=== PATIENT | female | born 1975 | race Caucasian/White ===

== ENCOUNTER → 2018-07-15 11:25 | Outpatient (CLI) | payer MEDICAID, SELFPAY ==
[2018-07-15 13:10] LABS: Free T3 2.7 pg/mL (2.18-3.98); T4 Free Direct 0.96 ng/dL (0.76-1.46); Vitamin B12 383 pg/mL (211-911); Vitamin D,25 Hydroxy 26.5 ng/mL (29.95-100.01)
[2018-07-22 14:38] LABS: HPV APTIMA, High Risk Positive (Negative)
== END ==
PROVIDERS: Referring Provider Obstetrics & Gynecology; Visit Provider Obstetrics & Gynecology
DX: N92.0 Excessive and frequent menstruation with regular cycle (principal); R53.83 Other fatigue; R53.81 Other malaise; Z12.4 Encounter for screening for malignant neoplasm of cervix
CPT/HCPCS: 36415; 82306; 82607; 83090; 83921; 84439; 84443; 84481; 87624; 88175; G0145

== ENCOUNTER → 2018-08-06 16:35 | Outpatient (CLI) | payer MEDICAID, SELFPAY ==
--- NOTE | 2018-08-06 | IMM_PTH ---
PATIENT: JE BALL LOC: [facility] U#:[id number] AGE/SX: 50/F ROOM: RE08/06/[address]: Dr. Kelli Vallejo MD : 1975 BED: DIS: SPEC #: [id number] RECD: 08/10/18 13:52 STATUS: AMARI SERVANDO #: [id number] CHATO: 08/06/18 00:[address]: Kelli Yates DEPT: IMMUNOHISTOCHEMISTRY RECD BY: Sarah Cardozo Tissues: A - Uterine cervix, NOS B - Uterine cervix, NOS Procedures: p16 (initial) KI-67 (add) PHYSICIAN & [place] [id number] SPECIMEN INFORMATION: Tissue Source: A - Cervix, 6 o'clock, biopsy, B - Cervix, 10 o'clock, biopsy Clinical Info: ASCUS, positive HPV Specimen Number: [id number] A & B CPT code: 86756 x2, 82332 x2 METHODOLOGY: Deparaffinized sections of prefer/formalin-fixed tissue or PAP/DQ stained slides are incubated with monoclonal/polyclonal antibodies/oligonucleotide probes. Localization is made via biotin free immunoperoxidase method. Appropriate controls are performed and reacted as expected. Results on target cell population are indicated in the following table: RESULTS: ANTIBODY / CLONE RESULT Block A P16 (E6H4) negative Ki-67 (30-9) negative Block B P16 (E6H4) positive, rare cells, patchy staining Ki-67 (30-9) positive, low These tests were developed and their performance characteristics determined by [facility]. They may not have been cleared or approved by the U.S. Food and Drug Administration. The FDA has determined that such clearance or approval is not necessary. INTERPRETATION: A. Cervix, 6 o'clock, biopsy: Negative for dysplasia. B. Cervix, 10 o'clock, biopsy: Focal changes consistent with HPV cytopathic effects. SJ:mauricio 08/12/18
--- NOTE | 2018-08-06 15:30 | CER_PTH ---
PATIENT: JE BALL LOC: [facility] #:[id number] AGE/SX: 50/F ROOM: RE08/06/[address]: Dr. Kelli Vallejo MD : 1975 BED: DIS: SPEC #: [id number] RECD: 08/09/18 08:59 STATUS: AMARI SERVANDO #: [id number] CHATO: 08/06/18 15:[address]: Kelli Yates DEPT: SURGICAL PATHOLOGY RECD BY: Christiano Blake Tissues: A - Uterine cervix, NOS B - Uterine cervix, NOS C - Endocervical D - POLYP Procedures: Surgery Specimen Level IV HEADER OPERATION: Colposcopy PRE-OP DIAGNOSIS: ASCUS, positive HPV, LMP 07/15/18, pap 07/15/18 TISSUE SUBMITTED: A - Cervical biopsy 6 o'clock, B - Cervical biopsy 10 o'clock, C - ECC, D - Polyp MICROSCOPIC DIAGNOSIS A. Cervix, 6 o'clock, biopsy: A minute fragment of squamous epithelium, desquamated benign endocervical epithelial cells and mucous, negative for dysplasia. See comment. B. Cervix, 10 o'clock, biopsy: Focal changes consistent with HPV cytopathic effects. Chronic inflammation. See comment. C. ECC: Fragments of benign endocervical epithelium, negative for dysplasia. D. Polyp: Fragments of inflamed ecto- and endocervical polyp and mucoid tissue. SJ:mauricio 08/12/18 COMMENT A & B. Immunohistochemistry ([id number]) for surrogate HPV marker (p16) supports the above diagnosis. Please make reference to previous specimen ([id number]) cervix, 10 o'clock, biopsy with diagnosis of fragment of squamous mucosa with mild dysplasia with HPV changes and cervix, 4 o'clock, biopsy with diagnosis of fragments of squamous mucosa with changes consistent with HPV cytopathic effects. Case has been reviewed in consultation with Dr. Echeverria who concurs with the above diagnosis. IDC:AM MICROSCOPIC DESCRIPTION Slides are reviewed. GROSS DESCRIPTION A - Received in fixative is one container labeled with the patient's name and designated cervical biopsy 6?o'clock. The specimen consists of one minute fragment of martin soft tissue submitted entirely for cell block preparation. B - Received in fixative is one container labeled with the patient's name and designated cervical biopsy 10?o'clock. The specimen consists of one irregular fragment of light martin soft tissue that measures 0.3 x 0.2 x 0.1 cm. The specimen is totally submitted in one cassette. C - Received in fixative is one container labeled with the patient's name and designated ECC. The specimen consists of a few fragments of hemorrhagic soft tissue submitted for cell block preparation. D - Received in fixative is one container labeled with the patient's name and designated polyp. The specimen consists of multiple fragments of hemorrhagic mucoid tissue that in aggregate measure 2 x 2 x 0.2 cm. The specimen is totally submitted in one cassette. / SJ:rg 08/09/18 TC: 5 CPT: 80264 x4
== END ==
PROVIDERS: Referring Provider Obstetrics & Gynecology; Visit Provider Obstetrics & Gynecology
DX: N93.0 Postcoital and contact bleeding (principal); R87.610 Atypical squamous cells of undetermined significance on cytologic smear of cervix (ASC-US)
CPT/HCPCS: 88305; 88341; 88342

== ENCOUNTER → 2019-08-02 14:05 | Outpatient (CLI) | payer MEDICAID, SELFPAY ==
[2019-08-09 09:58] LABS: HPV APTIMA, High Risk Positive (Negative)
== END ==
PROVIDERS: Visit Provider Obstetrics & Gynecology
DX: N76.0 Acute vaginitis (principal); Z12.4 Encounter for screening for malignant neoplasm of cervix
CPT/HCPCS: 87624; 88175; G0145

== ENCOUNTER → 2019-09-08 | Outpatient (CLI) | payer MEDICAID, SELFPAY ==
--- NOTE | 2019-09-08 | IMM_PTH ---
PATIENT: JE BALL LOC: [facility] U#:[id number] AGE/SX: 44/F ROOM: RE09/08/[address]: Dr. Kelli Vallejo MD : 1975 BED: DIS: 09/08/2019 SPEC #: [id number] RECD: 09/12/19 12:54 STATUS: AMARI SERVANDO #: [id number] CHATO: 09/08/19 00:[address]: Kelli Yates DEPT: IMMUNOHISTOCHEMISTRY RECD BY: Sarah Cardozo Tissues: A - Uterine cervix, NOS B - Endocervical Procedures: p16 (initial) KI-67 (add) PHYSICIAN & [place] [id number] SPECIMEN INFORMATION: Tissue Source: A - Cervix at 7 o'clock, B - [facility] Clinical Info: [facility] Specimen Number: [id number] A & B CPT code: 62873 x2, 90871 x2 METHODOLOGY: Deparaffinized sections of prefer/formalin-fixed tissue or PAP/DQ stained slides are incubated with monoclonal/polyclonal antibodies/oligonucleotide probes. Localization is made via biotin free immunoperoxidase method. Appropriate controls are performed and reacted as expected. Results on target cell population are indicated in the following table: RESULTS: ANTIBODY / CLONE RESULT Block A P16 (E6H4) negative Ki-67 (30-9) negative Block B P16 (E6H4) negative Ki-67 (30-9) negative These tests were developed and their performance characteristics determined by [facility]. They may not have been cleared or approved by the U.S. Food and Drug Administration. The FDA has determined that such clearance or approval is not necessary. The above immunohistochemical/dualISH markers are ordered and reviewed by the Pathologist. INTERPRETATION: A. Cervix at 7 o'clock, biopsy: No evidence of dysplasia. B. Endocervix, curettage: No evidence of dysplasia. AM:mauricio 09/13/19
--- NOTE | 2019-09-08 10:45 | CER_PTH ---
PATIENT: JE BALL LOC: [facility] U#:[id number] AGE/SX: 44/F ROOM: RE09/08/[address]: Dr. Kelli Vallejo MD : 1975 BED: DIS: 09/08/2019 SPEC #: [id number] RECD: 09/08/19 14:30 STATUS: AMARI AL #: [id number] CHATO: 09/08/19 10:[address]: Kelli Yates DEPT: SURGICAL PATHOLOGY RECD BY: Paul Quinn Tissues: A - Uterine cervix, NOS B - Uterine cervix, NOS Procedures: Surgery Specimen Level IV HEADER OPERATION: Colposcopy PRE-OP DIAGNOSIS: LMP 08/20/19, LGSIL TISSUE SUBMITTED: A - Cervical at 7 o'clock, B - ECC MICROSCOPIC DIAGNOSIS A. Cervix, biopsy: No evidence of dysplasia. Chronic inflammation. See comment. B. Endocervix, curettings: Strips of benign superficial endocervix. Rare detached squamous epithelial cells. See comment. AM:mauricio 09/12/19 COMMENT A & B. Results from immunohistochemistry ([id number]) for surrogate HPV marker (p16) will be reported separately. MICROSCOPIC DESCRIPTION Slides are reviewed. GROSS DESCRIPTION A - Received in fixative is one container labeled with the patient's name and designated cervical. The specimen consists of multiple irregular fragments of light martin soft tissue that in aggregate measure 0.6 x 0.5 x 0.1 cm. The specimen is totally submitted in one cassette. B - Received in fixative is one container labeled with the patient's name and designated ECC. The specimen consists of multiple minute fragments of martin tissue that in aggregate measure 1 x 1 x <0.1 cm. The specimen is totally submitted in one cassette. / AM:mauricio 09/09/19 TC:4 CPT: 87909 x2
== END | disposition home or self-care (01) ==
LOC: LABSPEC 14:09
PROVIDERS: Visit Provider Obstetrics & Gynecology
DX: R87.612 Low grade squamous intraepithelial lesion on cytologic smear of cervix (LGSIL) (principal)
CPT/HCPCS: 88305; 88341; 88342

== ENCOUNTER → 2021-01-17 12:03 | Outpatient (CLI) | payer MEDICAID, SELFPAY ==
[2021-01-17 13:28] LABS: Hematocrit 44.8 % (37-47); Hemoglobin 14.1 g/dL (12.0-15.0); Mean Corp Hgb Conc 31.5 g/dL (32-36); Mean Corpuscular Hgb 28.5 pg (27.0-32.0); Mean Corpuscular Volume 90.7 fL (81-99); Mean Platelet Vol. 12.3 fl (6.2-12.0); Platelet Count 199 K/mm3 (150-450); RBC Distribution Width CV 13.2 % (11.6-14.6); RBC Distribution Width SD 44.1 fl (35.1-43.9); Red Blood Count 4.94 M/mm3 (4.2-5.4); White Blood Count 6.5 K/mm3 (4.4-11.0)
[2021-01-17 13:37] LABS: Ferritin 11 ng/mL (8-252); Iron 165 ug/dL (50-170); Iron Binding Capacity,Total 377 ug/dL (250-450); PERCENT IRON SATURATION 43.8 % (15.0-55.0)
[2021-01-23 13:42] LABS: HPV APTIMA, High Risk Positive (Negative)
== END ==
PROVIDERS: Visit Provider Obstetrics & Gynecology
DX: N92.1 Excessive and frequent menstruation with irregular cycle (principal); Z12.4 Encounter for screening for malignant neoplasm of cervix
CPT/HCPCS: 36415; 82728; 83540; 83550; 85027; 87624; 88175; G0145

== ENCOUNTER → 2021-01-31 | Outpatient (CLI) | payer MEDICAID, SELFPAY ==
--- NOTE | 2021-01-30 | CER_PTH ---
PATIENT: JE BALL LOC: [facility] U#:[id number] AGE/SX: 45/F ROOM: RE01/31/[address]: Dr. Kelli Vallejo MD : 1975 BED: DIS: 01/31/2021 SPEC #: [id number] RECD: 01/30/21 16:59 STATUS: AMARI EDGEShannon #: [id number] CHATO: 01/30/21 00:[address]: eKlli Yates DEPT: SURGICAL PATHOLOGY RECD BY: Iram Rosado Tissues: A - Endocervical B - Uterine cervix, NOS Procedures: Surgery Specimen Level IV HEADER OPERATION: Colposcopy with ECC and cervical polyp PRE-OP DIAGNOSIS: LGSIL on pap TISSUE SUBMITTED: A ? ECC, B ? Cervical biopsy, random MICROSCOPIC DIAGNOSIS A. Endocervix, curettings: Rare fragments of squamous mucosa with focal HPV change. Endocervix with squamous metaplasia. See comment. B. Cervix, biopsy: Focal HPV change present. See comment. AM:mauricio 02/01/2021 COMMENT A & B. Results from immunohistochemistry ([id number]) for surrogate HPV marker (p16) will be reported separately. MICROSCOPIC DESCRIPTION Slides are reviewed. GROSS DESCRIPTION A - Received in fixative is one container labeled with the patient's name and designated ECC. The specimen consists of multiple irregular fragments of martin tissue that in aggregate measure 2.2 x 0.5 x <0.1 cm. The specimen is totally submitted in one cassette. B - Received in fixative is one container labeled with the patient's name and designated cervix biopsy. The specimen consists of multiple irregular fragments of light martin soft tissue that in aggregate measure 0.6 x 0.2 x 0.1 cm. The specimen is totally submitted in one cassette. / AM:mauricio 01/31/21 TC:5 CPT: 18716 x2
--- NOTE | 2021-02-01 | IMM_PTH ---
PATIENT: JE BALL LOC: [facility] U#:[id number] AGE/SX: 45/F ROOM: RE01/31/[address]: Dr. Kelli Vallejo MD : 1975 BED: DIS: 01/31/2021 SPEC #: [id number] RECD: 02/01/21 12:41 STATUS: AMARI REShannon #: [id number] CHATO: 02/01/21 00:[address]: Kelli Yates DEPT: IMMUNOHISTOCHEMISTRY RECD BY: Sarah Cardozo Tissues: A - Endocervical B - Uterine cervix, NOS Procedures: p16 (initial) KI-67 (add) PHYSICIAN & [place] [phone] SPECIMEN INFORMATION: Tissue Source: A ? ECC, B ? Cervical biopsy Clinical Info: [facility] Specimen Number: [id number] A & B CPT code: 02155 x2, 86550 x2 METHODOLOGY: Deparaffinized sections of prefer/formalin-fixed tissue or PAP/DQ stained slides are incubated with monoclonal/polyclonal antibodies/oligonucleotide probes. Localization is made via biotin free immunoperoxidase method. Appropriate controls are performed and reacted as expected. Results on target cell population are indicated in the following table: RESULTS: ANTIBODY / CLONE RESULT Block A P16 (E6H4) positive, focal, patchy Ki-67 (30-9) positive, low Block B P16 (E6H4) positive, focal, patchy Ki-67 (30-9) positive, low These tests were developed and their performance characteristics determined by [facility]. They may not have been cleared or approved by the U.S. Food and Drug Administration. The FDA has determined that such clearance or approval is not necessary. The above immunohistochemical/dualISH markers are ordered and reviewed by the Pathologist. INTERPRETATION: A. Endocervix, curettings: Consistent with focal HPV change. B. Cervix, biopsy: Consistent with focal HPV change. AM:mauricio 02/04/2021
== END | disposition home or self-care (01) ==
LOC: LABSPEC 08:01
PROVIDERS: Referring Provider Obstetrics & Gynecology; Visit Provider Obstetrics & Gynecology
DX: R87.612 Low grade squamous intraepithelial lesion on cytologic smear of cervix (LGSIL) (principal)
CPT/HCPCS: 88305; 88341; 88342

== ENCOUNTER 2021-02-07 17:28 | Observation (INO) | payer MEDICAID, SELFPAY ==
[2021-02-04 12:58] LABS: Hematocrit 42.1 % (37-47); Hemoglobin 13.1 g/dL (12.0-15.0); Mean Corp Hgb Conc 31.1 g/dL (32-36); Mean Corpuscular Hgb 28.1 pg (27.0-32.0); Mean Corpuscular Volume 90.1 fL (81-99); Platelet Count 166 K/mm3 (150-450); RBC Distribution Width CV 13.2 % (11.6-14.6); RBC Distribution Width SD 43.4 fl (35.1-43.9); Red Blood Count 4.67 M/mm3 (4.2-5.4); White Blood Count 7.8 K/mm3 (4.4-11.0)
[2021-02-04 13:04] LABS: Prothrombin Time (Protime)PT. 12.4 SECONDS (11.7-14.9)
[2021-02-04 13:37] LABS: Magnesium 2.1 mg/dL (1.6-2.6)
[2021-02-07] VITALS (17 sets, daily range): BP systolic 86–109; BP diastolic 41–68; PULSE 61–101; RESP 14–16; TEMP 36.2–37; O2SAT 98–100; BMI 25.9
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
[2021-02-07 08:59] LABS: Internal QC Validated? YES +Cl - CLEAR BKGD; Pregnancy, Urine Negative Negative
[2021-02-07] MEDS: Acetaminophen 500 MG Tablet 1000 MG PO (09:16)
[2021-02-07] MEDS: Gabapentin 600 MG Tablet PO (09:16)
[2021-02-07] MEDS: Celecoxib 200 MG Capsule 400 MG PO (09:16)
[2021-02-07] MEDS: Heparin Injection 5,000 UNITS/ML Syringe 5000 UNITS SC (09:18)
[2021-02-07] MEDS: dexAMETHasone 10 MG/ML Vial 8 MG IV (09:18)
[2021-02-07] MEDS: Lactated Ringers 1,000 ML 40 ML IV ×4 (09:19→20:47)
[2021-02-07 10:00] LABS: Bedside Glucose 88 mg/dL (70-110)
--- NOTE | 2021-02-07 10:30 | HYST_PTH ---
PATIENT: JE BALL LOC: [facility] U#:[id number] AGE/SX: 45/F ROOM: MI319 RE02/07/[address]: Dr. Kelli Vallejo MD : 1975 BED: 1 DIS: 02/08/2021 SPEC #: [id number] RECD: 02/08/21 07:59 STATUS: AMARI AL #: [id number] CHATO: 02/07/21 10:[address]: Kelli Yates DEPT: SURGICAL PATHOLOGY RECD BY: Rachel Esquivel Tissues: Uterus, NOS Procedures: Surgery Specimen Level V HEADER OPERATION: ERAS, hysterectomy, LAVH, salpingectomy PRE-OP DIAGNOSIS: Abnormal pap TISSUE SUBMITTED: Uterus, cervix and bilateral fallopian tubes MICROSCOPIC DIAGNOSIS Uterus, cervix and bilateral fallopian tubes, hysterectomy and bilateral salpingectomy: Cervix ? chronic cystic cervicitis. Negative for dysplasia. Endometrium ? secretory endometrium. Endometrial polyp - benign endometrial polyp with secretory endometrium. Myometrium ? adenomyosis. Bilateral fallopian tubes - no pathologic diagnosis. SJ:rg 02/11/2021 COMMENT Please make reference to previous specimen ([id number]) endocervix, curettings with diagnosis of rare fragments of squamous mucosa with focal HPC change and cervix, biopsy with diagnosis of focal HPV change. MICROSCOPIC DESCRIPTION Slides are reviewed. GROSS DESCRIPTION Received in fixative is one container labeled with the patient's name and designated uterus, cervix, bilateral fallopian tubes. The specimen consists of a previously, partially opened hysterectomy specimen consisting of uterus with cervix with attached bilateral fallopian tubes and a small detached piece of soft tissue. The uterus with cervix and detached piece of tissue weighs in aggregate 146 gm. The uterus with cervix measures 11 x 6.5 x 5 cm and detached piece of tissue measures 2.5 x 1.5 x 1 cm. The serosal surface is martin, glistening. The ectocervical mucosa is focally congested and eroded. The external os is oval and patulous in contour. The resection margin of the cervix is inked black. The endocervical canal measures 3.5 cm in length and the endocervical mucosa is martin, glistening and unremarkable. Sections of the cervix do not reveal any obvious mass lesion. The triangular endometrial cavity measures 4.5 cm in length and up to 2.5 cm in width. The endometrium shows a martin-pink polyp measuring 1.5 x 0.5 x 0.5 cm. The myometrial wall underneath the polyp is not indurated. The rest of the endometrium measures 0.1 cm in thickness. A focal defect is noted in the posterior uterine wall most likely site of detached piece of soft tissue. Sections of the uterine wall do not reveal any mass lesion and measures up to 2.5 cm in thickness. The right fallopian tube measures 7 cm in length and up to 0.6 cm in diameter. Sections reveal unremarkable cut surfaces. The fimbrial end is identified. The left fallopian tube is similar appearance to right and measures 7.5 cm in length and 0.6 cm in diameter. [employer] sections are submitted in 18 cassettes as follows: 1-10 - cervix like a cone (1 & 2 - 12 to 3 o?clock, 3-5 - 3 to 6 o?clock, 6-8 - 6 to 9 o?clock, 9 & 10 - 9 to 12 o?clock), 11 - endometrial polyp with underlying uterine wall, entirely submitted, 12 & 13 - anterior uterine wall, 14 & 15 - posterior uterine wall, 16 - detached piece of soft tissue, 17??right fallopian tube, 18 - left fallopian tube. / ANDRIY:mauricio 02/08/21 TC:5 CPT: 63357
[2021-02-07] MEDS: Cefazolin 2 GM in 0.9% Normal Saline 100 ML IV ×2 (11:42→23:27)
[2021-02-07] MEDS: Vasopressin 20 UNITS/ML Vial (12:13)
[2021-02-07] MEDS: Bupivacaine Mpf 0.5% 30 ML VIAL (12:55)
[2021-02-07 16:23] LABS: Hematocrit 35.5 % (37-47); Hemoglobin 11.4 g/dL (12.0-15.0)
--- NOTE | 2021-02-07 17:30 | OP.PCM_ITS ---
Problems Associated Problem List Diagnoses (1) Excessive and frequent menstruation with irregular cycle: (2) H/O: hysterectomy: Report of Operation Date of Procedure: 02/07/21 Pre-Operative Diagnosis: 1. Excessive and frequent menstruation with irregular cycle Post-Operative Diagnosis: 1. Excessive and frequent menstruation with regular cycle Surgery/Procedure Performed:: 1. Laparoscopic-assisted vaginal hysterectomy 2. Bilateral salpingectomy Description of Surgical Findings:: Normal-appearing uterus, bilateral tubes and ovaries. Surgeon: Kelli Yates veneer stapler: Yolanda Lee Type of Anesthesia: General Anesthesiologist: Nick Arellano Specimen's removed: Uterus, bilateral tubes Estimated Blood Loss (mL): 500 ml Fluids Replaced: 2500 mL Description of Procedure: Indications. 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 She had required multiple colposcopies for evaluation of the abnormal Paps. She was counseled regarding management options and opted to proceed with hysterectomy. Informed consent was obtained prior to the procedure with review of procedural risks, benefits, indications and alternatives. Procedure: The patient was brought to the operating room and spinal was performed. She is placed in the dorsal supine position and induced under general anesthesia and intubated. She was then repositioned to dorsolithotomy and examination under anesthesia was performed. Her arms were tucked at her sides. The perineum and abdomen were prepped and draped in sterile fashion. Burton catheter was placed into the the urethra and secured. Patient was placed into high lithotomy and weighted speculum was placed vaginally. 20 cc of dilute vasopressin (20 units in 100 cc of normal saline) was injected circumferentially around the cervix. The uterus was sounded and Advincula uterine manipulator was placed and secured. The speculum was removed from the vagina and the patient was placed into low lithotomy and attention turned to the abdomen. An inferior umbilical incision was made using the scalpel after infiltration with half percent bupivacaine. A Veress needle was introduced with successful hanging drop test and no aspirate. Abdominal entry pressures remained low. The abdomen was insufflated to 15 mmHg. The Veress needle was removed and a 5 mm port introduced under laparoscopic guidance confirming entry into the abdominal cavity. Bilateral transverse abdominis plane blocks were placed using half percent bupivacaine under laparoscopic guidance in the right and left lower quadrants. 5 mm incisions were made under transillumination in each of those quadrants and 5 mm ports also placed there. The patient was placed into Trendelenburg. The abdomen and pelvis were inspected and normal in appearance. I proceeded with left salpingectomy. Left tubal fimbria was identified the mesosalpinx was serially electrocoagulated and cut using the Enseal device to the level of the uterine cornua. The left round ligament was electrocoagulated and transected. The anterior leaflet of the broad ligament was opened with creation of left bladder flap. The posterior leaflet of the broad ligament was dissected and the uterine vessels skeletonized. The left ureter was visualized throughout this time. The left uterine vessels and left cardinal ligament were clamped, electrocoagulated and cut also using the Enseal device. In similar fashion right salpingectomy was also performed. This was followed by electrocoagulation and transection of the right round ligament, opening of the anterior broad ligament with completion of the bladder flap at the right, incision of the posterior broad ligament and skeletonization of the uterine vessels. The abdomen was desufflated and the patient was removed from Trendelenburg and placed into high lithotomy. Attention was turned to the per ineum. The Advincula uterine manipulator was removed. A weighted speculum was placed vaginally. A circumferential incision was made at the cervicovaginal junction using the scalpel. The vesicovaginal space was dissected sharply using Metzenbaum scissors however the anterior cul-de-sac peritoneum was not yet visualized and palpably high. I proceeded with posterior dissection. The posterior cul-de-sac was entered sharply and a long weighted speculum was placed into the posterior cul-de-sac. The uterosacral ligaments, then cardinal ligaments, and uterine arteries were serially Claudia clamped, cut and suture ligated with freeing of the uterus and tubes. During this portion of the procedure there was bleeding from the posterior cuff. The posterior culdesac peritoneum retracted several times despite attempts at retraction using the weighted speculum. Once the uterus and tube were delivered the posterior culdesac peritoneum and posterior vaginal cuff were reefed using 3-0 Vicryl Rapide with improved hemostasis. Bleeding from the uterine pedicle was controlled using a right angle clamp and the pedible was again suture ligated with good hemostasis. The vaginal cuff was reapproximated using serial figure of eight sutures of 0 Vicryl incorporating the anterior culdesac peritoneum. The abdomen was insufflated, the patient placed into Trendelenberg and laparoscopy was again performed demonstrating hemostasis however there was leakage of gas noted vaginally. The defect was identified vaginally and repaired using single figure of eight of 0 Vicryl with no further leakage of gas on subsequent laparoscopy. He Burton catheter was removed and Trendelenburg reversed. The skin was closed using 4-0 Monocryl by the [employer]PER[employer]ENT under my supervision. 2 x 2 gauze and OpSite were placed over the incisions as patient previously reported adhesive sensitivity as we awaited Steri-Strips. The patient was then repositioned into dorsal supine, awakened, extubated and transferred to the recovery room. Sponge counts and needle counts were correct x2. Admit VTE Documentation VTE Present on Admission: No VTE Mechan Device Prophylaxis: SCD's VTE Pharm Prophylaxis ordered?: Yes
[2021-02-08 02:26] VITALS: BP 100/50; PULSE 93; RESP 16; TEMP 37.3; O2SAT 97
[2021-02-08] MEDS: Cefazolin 2 GM in 0.9% Normal Saline 100 ML IV (06:02)
[2021-02-08 06:04] VITALS: BP 102/57; PULSE 99; RESP 16; TEMP 37.1; O2SAT 96
[2021-02-08 07:11] LABS: Hematocrit 33.4 % (37-47); Hemoglobin 10.8 g/dL (12.0-15.0); Mean Corp Hgb Conc 32.3 g/dL (32-36); Mean Corpuscular Hgb 28.9 pg (27.0-32.0); Mean Corpuscular Volume 89.3 fL (81-99); Platelet Count 164 K/mm3 (150-450); RBC Distribution Width CV 13.3 % (11.6-14.6); RBC Distribution Width SD 43.8 fl (35.1-43.9); Red Blood Count 3.74 M/mm3 (4.2-5.4); White Blood Count 10.9 K/mm3 (4.4-11.0)
[2021-02-08 07:42] LABS: Creatinine, Serum 0.94 mg/dL (0.55-1.02); EST Glomerular Filtration Rate 68 mL/min (>60); Est Glom Filt Rate - Afr Amer 83 mL/min (>60); Estimated Creatinine Clearance 65.95 ml/min
[2021-02-08 08:04] VITALS: BP 105/44; PULSE 88; RESP 18; TEMP 36.8
--- NOTE | 2021-02-08 09:07 | PCM.PROGNOTE ---
Subjective Subjective Denies incisional pain. She is out of bed, ambulating, passing flatus, voiding without difficulty. Complains of right shoulder pain. Denies bleeding. Tolerates p.o. Objective Data Objective Data Vital Signs: Vital Signs Temp Pulse Resp BP Pulse Ox 98.3 F 88 18 105/44 L 96 02/08/21 08:04 02/08/21 08:04 02/08/21 08:04 02/08/21 08:04 02/08/21 06:04 Oxygen Flow Rate (L/min) 6 Oxygen Delivery Method Room Air Weight: 68.4 kg Body Mass Index (BMI) 25.9 Intake & Output: Intake and Output for Last 24 Hours 02/06/21 02/07/21 02/08/21 23:59 23:59 23:59 Intake Total 3542.67 / 3542.67 764.00 / 764.00 Output Total 500 / 500 600 / 600 Balance 3042.67 / 3042.67 164.00 / 164.00 Lab / Micro Data Result Diagrams: 02/08/21 06:47 02/08/21 06:47 Labs: Laboratory Results - last 24 hr 02/06/21 14:15: Hgb 11.4 L, Hct 35.5 L 02/07/21 09:26: POC Glucose 88 02/08/21 06:47: WBC 10.9, RBC 3.74 L, Hgb 10.8 L, Hct 33.4 L, MCV 89.3, MCH 28.9, MCHC 32.3, RDW Std Deviation 43.8, RDW Coeff of Efraín 13.3, Plt Count 164, MPV 12.0 02/08/21 06:47: Creatinine 0.94, Estim Creat Clear Calc 65.95, Est GFR (MDRD) Af Amer 83, Est GFR (MDRD) Non-Af 68 Micro: Microbiology 02/04/21 11:15 Nasal Secretion SARS-CoV-2 Antigen (Rapid) - Final Physical Exam Const alert, oriented x3 and no apparent distress Resp normal respiratory effort, normal air movement and clear to auscultation bilaterally Cardio regular rate, regular rhythm, S1 normal heart sound and S2 normal heart sound GI normal to inspection, nondistended, normoactive bowel sounds, soft to palpation, non-tender and non-distended GI Narrative: Incisional dressings clean, dry, intact Extremity normal to inspection, no calf tenderness and no pedal edema Assessment & Plan Assessment/Plan (1) H/O: hysterectomy: PLAN: Doing well postop day 1. Routine postop care. Plan for DC home later today. (2) Excessive and frequent menstruation with irregular cycle:
--- NOTE | 2021-02-08 09:09 | DCINST_ITS ---
Discharge Instructions Diet Discharge Diet: No restrictions Activity Discharge Activity: Return to Normal Activity May resume sexual activity in: 6 weeks Lifting Restrictions: 10 lb Dressing / Incision Call your doctor if your incision/area has: Continuous Slow Oozing, Sudden Increased Bleeding, Increased Pain/ Swelling, Increased Redness, Foul Smelling Discharge and Swelling at the incision site Call your doctor if you observe: Fever of 101 or Higher, Inability to urinate, Inability to have a bowel movement, Shortness of breath, Chest pain, Calf dis comfort and Uncontrolled pain Remove Dressing in: 1 day Cleanse incision/area with: Soap & Water Follow Up Care Please Follow Up With: Kelli Yates MD When: 5-7 days Test Results: Test results from this visit will be discussed in further detail at your follow-up appointment, if applicable. Discharge Plan Admission Admit Date/Time: 02/07/21 17:28 Primary Reason for Your Visit: Hysterectomy Attending Provider: Kelli Yates Instructions Patient Instructions: After Laparoscopic ... Discharge Orders/Prescriptions Prescriptions: New hydrocodone-acetaminophen 5-325 mg Tablet 1 tab PO Q6H PRN PRN (Reason: Pain Score 1-5) 7 Days Qty: 20 RF: 0 ibuprofen 600 mg tablet 600 mg PO Q8H PRN (Reason: pain) Qty: 30 RF: 0 ferrous sulfate 325 mg (65 mg iron) tablet,delayed release (DR/EC) 325 mg PO BID Qty: 60 RF: 0 Continued multivitamin Tablet 1 tab PO DAILY RF: 0 ascorbic acid (vitamin C) [Vitamin C] 500 mg Tablet 500 mg PO DAILY RF: 0 albuterol sulfate 90 mcg/actuation HFA aerosol inhaler 2 puff INHALATION Q4H PRN PRN (Reason: Shortness Of Breath Or Wheezing) RF: 0 B12 5,000-100 mcg Lozenge 1 maribel SUBLINGUAL DAILY RF: 0 Referrals / Follow Up: JOSE ADRIAN [Other] Disposition Disposition (needs filled in before D/C Order can be placed): Home, Self Care
--- NOTE | 2021-02-08 10:25 | CASEMGMT ---
RN CM Face to Face with patient for initial transition planning/care coordination assessment. RN CM introduced self and role at [facility]. Patient lying in bed, alert and oriented. Patient willing to participate in assessment and is able to answer all questions appropriately. Care providers, pharmacy, and demographics verified. Patient wishes to discharge home, denies need for home health at this time. Patient states she has no further needs or concerns at this time. CM to follow for discharge planning needs that may arise. PCP: Maria A Vargas Specialists: SUZANNE Jolly Preferred Pharmacy: [facility] Insurance: Jenn Prescription Benefit: yes Living Will/HPOA: yes daughter Angie Solano LNOK: daughter Living Arrangements: Patient live with boyfriend and daughter in a 3 story home. Patient states she is independent at home and able to ambulate stairs. Transportation: self/family DME/HHC: patient denies previous HHC or DME. Disposition Plan: Patient to discharge home with family support and follow-up plans in place. Coco ORTIZ, RN, CM
[2021-02-08] MEDS: HYDROcodone Bitartrate/Apap 5/325 Tablet PO (10:36)
== END 2021-02-08 11:19 | disposition home or self-care (01) ==
PROVIDERS: Anesthesiology; Admitting Provider Obstetrics & Gynecology; Referring Provider Obstetrics & Gynecology; Visit Provider Obstetrics & Gynecology
PROC: 0UT9FZZ Resection of Uterus, Via Natural or Artificial Opening With Percutaneous Endoscopic Assistance (ICD-10-PCS; CPT 58552; principal; 2021-02-07 10:15)
DX: N84.0 Polyp of corpus uteri (principal); N72 Inflammatory disease of cervix uteri; N80.0 Endometriosis of uterus; N92.1 Excessive and frequent menstruation with irregular cycle
CPT/HCPCS: 00940; 58552; 36415; 81025; 82565; 82962; 83735; 85014; 85018; 85027; 85610; 85730; 86850; 86900; 86901; 87426; 88307; 96365; 96366; 99218; C9803; J7120; C1760; G0378; G0379; J2405

== ENCOUNTER → 2021-02-22 | Outpatient (CLI) | payer MEDICAID, SELFPAY ==
[2021-02-07 18:17] VITALS: BMI 25.9
== END | disposition home or self-care (01) ==
LOC: LABSPEC 11:02
PROVIDERS: Visit Provider Obstetrics & Gynecology
DX: R30.9 Painful micturition, unspecified (principal)
CPT/HCPCS: 87086; 87088